=== PATIENT | female | born 1990 | race Caucasian/White ===

== ENCOUNTER 2023-01-31 00:18 | Inpatient (IN) | payer SELFPAY ==
[2023-01-31] VITALS (16 sets, daily range): BP systolic 91–130; BP diastolic 54–80; O2SAT 99–100
[~2023-01-31] VITALS: Ht 162.6 cm; Wt 76.4 kg
[2023-01-31] MEDS ORDERED: GNP28TAB2 PO (00:39)
[2023-01-31] MEDS ORDERED: PENICILLIN G POTASSIUM 5 MU IV 5 MU in D5W MINI-BAG PLUS 100 ML IV STA (00:56)
[2023-01-31] MEDS ORDERED: TRANEXAMIC ACID INJection 1,000 MG in NS 100 ML IV PRN (01:00)
[2023-01-31] MEDS ORDERED: OXYTOCIN DRIP 30 UNITS in IV 1 EA IV PRN (01:00)
[2023-01-31] MEDS ORDERED: LIDOCAINE 1% MDV 20ML VIAL INFIL PRN (01:00)
[2023-01-31] MEDS ORDERED: CARBOPROST TROMETHAMINE 250 MCG/ML AMP IM PRN (01:00)
[2023-01-31] MEDS ORDERED: OXYTOCIN INJ 10UNITS/ML 1ML VIAL IM PRN (01:00)
[2023-01-31] MEDS ORDERED: METHYLERGONOVINE MALEATE 0.2MG/ML 1ML VIAL IM PRN (01:00)
[2023-01-31 01:47] LABS: HEMATOCRIT 36.4 % (36.0-47.0); HEMOGLOBIN 11.9 g/dl (12.0-15.5); MEAN CORPUSCULAR HGB CONC 32.7 g/dl (32.0-36.5); MEAN CORPUSCULAR VOLUME 85.6 fl (80.0-96.0); PLATELET COUNT, AUTOMATED 110 10^3/uL (150-450); RED BLOOD COUNT 4.25 10^6/uL (4.00-5.40); WHITE BLOOD COUNT 5.5 10^3/uL (4.0-10.0)
[2023-01-31] MEDS: PEN G POT 3,000,000 UNIT/50 ML 3,000,000 UNIT in IV 1 EA IV SCH ×2 (05:36→09:27)
[2023-01-31] MEDS ORDERED: MORPHINE 4 MG/ML 1ML VIAL IV ONE (06:10)
[2023-01-31] MEDS ORDERED: PROMETHAZINE 25MG/ML 1ML VIAL IV ONE (06:10)
[2023-01-31] MEDS ORDERED: MORPHINE 10 MG/ML 1ML VIAL SC ONE (06:10)
[2023-01-31] MEDS ORDERED: LR 1,000 ML IV SCH ×2 (07:10→09:40)
[2023-01-31 07:35] LABS: HIV 1&2 SCREEN NEGATIVE (NEGATIVE)
[2023-01-31] MEDS ORDERED: OXYTOCIN DRIP 30 UNITS in IV 1 EA IV SCH (09:40)
[2023-01-31] MEDS ORDERED: DOCUSATE SODIUM 100MG CAPSULE PO PRN (13:15)
[2023-01-31] MEDS ORDERED: RHOGAM 300MCG (1500IU) INJ IM SCH (13:15)
[2023-01-31] MEDS ORDERED: DIBUCAINE 1% OINTMENT 30GM TOP PRN (13:15)
[2023-01-31] MEDS ORDERED: IBUPROFEN 600MG TAB PO PRN (13:15)
[2023-01-31] MEDS ORDERED: ACETAMINOPHEN TAB 650MG DOSE (2X325MG) PO PRN (13:15)
[2023-01-31] MEDS ORDERED: METHYLERGONOVINE MALEATE 0.2 MG TAB PO PRN (13:15)
[2023-01-31] MEDS ORDERED: IBUPROFEN 800 MG TAB PO PRN (13:15)
[2023-01-31] MEDS ORDERED: ACETAMINOPHEN 500 MG TAB PO PRN (13:15)
[2023-01-31] MEDS ORDERED: ONDANSETRON 4MG 2ML VIAL IV PRN (13:25)
[2023-01-31] MEDS ORDERED: METHYLERGONOVINE MALEATE 0.2MG/ML 1ML VIAL ONE (19:20)
[2023-02-01 06:00] VITALS: BP 93/56; O2SAT 98
[2023-02-01] MEDS ORDERED: PRENATAL VITAMINS CHEWABLE TABLET PO SCH (09:00)
[2023-02-02] MEDS ORDERED: MEASLES,MUMPS,RUBELLA VACCINE INJ (MMR-II) SC.IMMUN ONE (09:00)
== END 2023-02-01 15:50 | disposition home or self-care (01) | DRG 541 ==
LOC: M LDO 00:18 → M LDI 01:03 → M OBS 15:50
PROVIDERS: ADMIT Advanced Practice Midwife; ATTEND Specialist
PROC: 10E0XZZ Delivery of Products of Conception, External Approach (ICD-10-PCS; principal; 2023-01-31)
PROC: 10D17Z9 Manual Extraction of Products of Conception, Retained, Via Natural or Artificial Opening (ICD-10-PCS; 2023-01-31)
PROC: 10907ZC Drainage of Amniotic Fluid, Therapeutic from Products of Conception, Via Natural or Artificial Opening (ICD-10-PCS; 2023-01-31)
DX: O48.0 Post-term pregnancy (principal); O72.0 Third-stage hemorrhage; O34.211 Maternal care for low transverse scar from previous cesarean delivery; Z3A.40 40 weeks gestation of pregnancy; O99.824 Streptococcus B carrier state complicating childbirth; O69.81X0 Labor and delivery complicated by cord around neck, without compression, not applicable or unspecified; O77.0 Labor and delivery complicated by meconium in amniotic fluid; Z37.0 Single live birth